=== PATIENT | male | born 1990 | race African-American/Black ===

== ENCOUNTER 2018-06-28 11:46 | Emergency (ER) | payer BC ==
--- NOTE | 2018-06-28 11:49 | EDM.PDOC ---
ED HPI GENERAL MEDICAL PROBLEM - General Stated Complaint: FELL HURT RT WRIST Time Seen by Provider: 06/28/18 11:47 Source of Information: Reports: Patient History Limitations: Reports: No Limitations - History of Present Illness INITIAL COMMENTS - FREE TEXT/NARRATIVE: HISTORY AND PHYSICAL: History of present illness: Patient is a 28-year-old male who presents to the emergency room with complaints of right wrist pain after a fall. He states he slipped and fell on the ice landing on an outstretched hand. He has pain with movement and grasping to the ulnar aspect of the right wrist. He denies any previous injuries or surgery of the affected extremity. He denies hitting his head or any loss of consciousness. No other extremity involvement. Review of systems: As per history of present illness and below otherwise all systems reviewed and negative. Past medical history: As per history of present illness and as reviewed below otherwise noncontributory. Surgical history: As per history of present illness and as reviewed below otherwise noncontributory. Social history: See social history for further information Family history: As per history of present illness and as reviewed below otherwise noncontributory. Physical exam: General: Well-developed and well-nourished 28-year-old -[place] male. Alert and oriented. Nontoxic appearing and in no acute distress. HEENT: Atraumatic, normocephalic, pupils equal and reactive bilaterally, negative for conjunctival pallor or scleral icterus, mucous membranes moist, TMs normal bilaterally, throat clear, neck supple, nontender, trachea midline. No drooling or trismus noted. No meningeal signs. No hot potato voice noted. Lungs: Clear to auscultation, breath sounds equal bilaterally, chest nontender. Heart: S1S2, regular rate and rhythm without overt murmur Abdomen: Soft, nondistended, nontender. Negative for masses or hepatosplenomegaly. Negative for costovertebral tenderness. Pelvis: Stable nontender. Genitourinary: Deferred. Rectal: Deferred. Skin: Intact, warm, dry. No lesions or rashes noted. Extremities: Pain with palpation throughout the right wrist. He is able to flex and extend without difficulty, although does cause pain. No snuff box tenderness. Strong radial pulse. Capillary refill less than 3 seconds. Moves all extremities per self without difficulty or deficits. The injury does not involve the forearm hand or digits. Neurovascular unremarkable. C-spine/Back: No pinpoint vertebral tenderness upon palpation. No crepitus, step -offs or obvious deformities. He denies any pain to his back and is fully ambulatory without difficulty or deficits. Neuro: Awake, alert, oriented. Cranial nerves II through XII unremarkable. Cerebellum unremarkable. Motor and sensory unremarkable throughout. Exam nonfocal. Notes: X-ray shows no fracture or dislocation. Will place an splint and have him follow -up with the orthopedic provider for further evaluation and management. Supportive care measures were reviewed and discussed. He voices understanding and is agreeable to plan of care. Denies any further questions or concerns at this time. Diagnostics: Right wrist x-ray Therapeutics: Splint Prescription: Tramadol (#15) Impression: Right wrist injury Plan: 1. Rest, ice, elevate the extremity as able. Please use the splint for comfort. 2. Tylenol and/or ibuprofen as needed for pain management. 3. Please follow-up with the orthopedic provider and/or your primary care provider in the next 1-2 days. Return to the ED as needed and as discussed Definitive disposition and diagnosis as appropriate pending reevaluation and review of above. right wrist Pain Score (Numeric/FACES): 8 - Related Data Allergies Allergy/AdvReac Type Severity Reaction Status Date / Time No Known Allergies Allergy Verified 06/28/18 11:59 Home Meds: Home Meds traMADol [Ultram] 50 mg PO Q4H PRN #15 tab 06/28/18 [Rx] Review of Systems - Review of Systems Review Of Systems: ROS reveals no pertinent complaints other than HPI. ED EXAM, GENERAL - Physical Exam Exam: See Below (See dictation) Course - Vital Signs Last Recorded V/S: Last Vital Signs Temp 97.2 F 06/28/18 11:59 Pulse 66 06/28/18 11:59 Resp 18 06/28/18 11:59 BP 126/77 06/28/18 11:59 Pulse Ox 98 06/28/18 11:59 - Orders/Labs/Meds Orders: Active Orders 24 hr Category Date Time Status DME for Discharge [COMM] Stat Oth 06/28/18 13:00 Ordered Departure - Departure Time of Disposition: 13:03 Disposition: Home, Self-Care 01 Clinical Impression: Right wrist injury Qualifiers: Encounter type: initial encounter Qualified Code(s): S69.91XA - Unspecified injury of right wrist, hand and finger(s), initial encounter - Discharge Information Prescriptions: traMADol [Ultram] 50 mg PO Q4H PRN #15 tab PRN Reason: Pain Instructions: Wrist Sprain With Rehab-SportsMed Referrals: PCP,Not In Area [Primary Care Provider] - Additional Instructions: The following information is given to patients seen in the emergency department who are being discharged to home. This information is to outline your options for follow-up care. We provide all patients seen in our emergency department with a follow-up referral. The need for follow-up, as well as the timing and circumstances, are variable depending upon the specifics of your emergency department visit. If you don't have a primary care physician on staff, we will provide you with a referral. We always advise you to contact your personal physician following an emergency department visit to inform them of the circumstance of the visit and for follow-up with them and/or the need for any referrals to a consulting specialist. The emergency department will also refer you to a specialist when appropriate. This referral assures that you have the opportunity for follow-up care with a specialist. All of these measure are taken in an effort to provide you with optimal care, which includes your follow-up. Under all circumstances we always encourage you to contact your private physician who remains a resource for coordinating your care. When calling for follow-up care, please make the office aware that this follow-up is from your recent emergency room visit. If for any reason you are refused follow-up, please contact the [facility] Emergency Department at and asked to speak to the emergency department charge nurse. [facility] [address] [place] [id number] [address] [facility] Professional [facility] [address] [place] [address], [address] [place] [address] 1. Rest, ice, elevate the extremity as able. Please use the splint for comfort. 2. Tylenol and/or ibuprofen as needed for pain management. Tramadol for moderate to severe pain, may cause drowsiness. 3. Please follow-up with the orthopedic provider and/or your primary care provider in the next 1-2 days. Return to the ED as needed and as discussed - My Orders Last 24 Hours: My Active Orders 06/28/18 13:00 DME for Discharge [COMM] Stat - Assessment/Plan Last 24 Hours: My Active Orders 06/28/18 13:00 DME for Discharge [COMM] Stat
--- NOTE | 2018-06-28 13:01 | CR ---
HISTORY: Pain after falling injury. FINDINGS: Two views of the wrist are provided. There are no findings for fracture, dislocation or arthritic change. Dictated by Celso Cee MD @ Jun 28 2018 12:58PM Signed by Dr. Celso Cee @ Jun 28 2018 12:59PM
== END 2018-06-28 13:19 | disposition home or self-care (01) ==
LOC: MW.ED 11:46
DX: S69.91XA Unspecified injury of right wrist, hand and finger(s), initial encounter (principal); W00.0XXA Fall on same level due to ice and snow, initial encounter
CPT/HCPCS: 29125; 73100-26-RT; 73100-RT; 99283